=== PATIENT | female | born 1955 | race Caucasian/White ===

== ENCOUNTER 2020-02-12 02:32 | Emergency (ER) | payer MEDICARE, OTHER, SELFPAY ==
--- NOTE | 2020-02-12 02:35 | ED.ABDPAIN ---
HPI - Abdominal Pain General Chief Complaint: Abdominal Pain Stated Complaint: Has IBS, constipation inflamed instestine Time Seen by Provider: 02/12/20 02:35 Source: patient and family Mode of arrival: Ambulatory Limitations: no limitations History of Present Illness HPI narrative: 64F non-smoker with history of IBS presents with her and the chief complaint of severe lower abdominal pain over the course of the day. She complains of increasing lower abdominal and pelvic pain with the car ride up from [place]. She is visiting grand kids in [place] and came to see us as her pain worsened. She denies any runny nose, sore throat or cough, nor any other classic COVID-19 symptoms. She states she has a history of irritable bowel syndrome and sees gastroenterology in [place]. She has been having some increased difficulty for the past 3 weeks and this includes frequent constipation. She recently employed clear liquid diet which did not help her much. Her last visit to a hospital was in April of 2019 at [place], [place]. Her pain is worse with motion and the car ride, improves with rest. She denies any radiation. She denies any dysuria, but admits to urinary frequency MD complaint: abdominal pain Onset (ago): hour(s) Pain Consistency: constant Location: suprapubic Severity: moderate Quality: cramping Radiation: none Migration to: no migration Relieving factors: rest Exacerbating factors: movement Associated symptoms: nausea Related Data Allergies Allergy/AdvReac Type Severity Reaction Status Date / Time aspirin Allergy Verified 02/12/20 04:42 cyclobenzaprine Allergy Verified 02/12/20 04:40 levofloxacin [From Levaquin] Allergy Verified 02/12/20 04:43 naproxen Allergy Verified 02/12/20 04:42 NSAIDS (Non-Steroidal Allergy Verified 02/12/20 04:42 Anti-Inflamma oxycodone Allergy Verified 02/12/20 04:40 Penicillins Allergy Verified 02/12/20 04:40 Sulfa (Sulfonamide Allergy Verified 02/12/20 04:41 Antibiotics) Review of Systems Constitutional Constitutional: Denies chills, Denies fatigue, Denies fever(s), Denies frequent falls, Denies lethargy and Denies weakness Eyes Eyes: Denies change in vision, Denies eye discharge, Denies irritation and Denies loss of vision ENT Ears, Nose, Mouth, and Throat: Denies change in voice, Denies dizziness, Denies neck pain, Denies sore throat and Denies throat swelling Cardiovascular Cardiovascular: Denies chest pain, Denies irregular heart rhythm, Denies lightheadedness, Denies palpitations, Denies dyspnea, Denies dyspnea on exertion and Denies orthopnea Respiratory Respiratory: Denies cough, Denies dyspnea, Denies dyspnea on exertion and Denies wheezing Gastrointestinal Gastrointestinal: Reports abdominal pain, Denies change in bowel habits, Reports constipation, Denies diarrhea, Reports nausea and Denies vomiting Musculoskeletal Musculoskeletal: Denies neck pain and Denies numbness Integumentary/Breasts Skin/Breast: Denies pruritus, Denies erythema, Denies rash and Denies wounds Neurologic Neurologic: Denies behavioral changes, Denies confusion, Denies dizziness, Denies frequent falls, Denies loss of vision, Denies numbness and Denies weakness Psychiatric Psychiatric: Denies anxiety, Denies behavioral changes, Denies confusion, Denies depression, Denies homicidal ideation and Denies suicidal ideation Endocrine Endocrine: Denies fatigue, Denies flushing and Denies palpitations Hematologic/Lymphatic Hematologic/Lymphatic: Denies easy bruising Allergic/Immunologic Allergic/Immunologic: Denies urticaria, Denies throat swelling and Denies wheezing Patient History Social History Smoking Status: Never smoker Smoking Status: Never smoker alcohol intake frequency: 0-2 drinks per day Exam Narrative Exam Narrative: GENERAL: [64] year old patient appears stated age. Thin, obviously very uncomfortable HEAD: Atraumatic. Normocephalic. EYES: Pupils equal round and reactive. Extraocular motions intact. No scleral icterus. No injection or drainage. ENT: Nose without bleeding, purulent drainage. Throat without erythema, tonsillar hypertrophy or exudate. Airway patent. NECK: Trachea midline. Non tender CARDIOVASCULAR: Regular rate and rhythm without murmurs, gallops, or rubs. RESPIRATORY: Clear to auscultation. Breath sounds equal bilaterally. No wheezes, rales, or rhonchi. GASTROINTESTINAL: Abdomen soft, non-tender, nondistended. Decreased bowel sounds in all 4 quadrants EXTREMITIES: No edema or joint tenderness. BACK: Nontender without deformity or crepitance. No flank tenderness. NEURO: AOx3. SKIN: No rash or erythema of visible areas Initial Vital Signs Initial Vital Signs: Vital Signs Temperature 98.8 F 07/23/20 02:55 Pulse Rate 81 02/12/20 02:55 Respiratory Rate 17 02/12/20 02:55 Blood Pressure 144/78 H 02/12/20 02:55 Pulse Oximetry 98 02/12/20 02:55 Course Course Course Narrative: call to Dr. Rocha (patient's GI) who recommends half bottle miralax in bottle of gatorade and clear liquids with follow up and return precautions. Orders Ordered: Discontinued Medications Hydromorphone HCl (Dilaudid) 0.5 mg IV NOW ONE Stop: 02/12/20 03:03 Last Admin: 02/12/20 03:24 Dose: 0.5 mg Documented by: YUNI Sodium Chloride (Normal Saline 0.9%) 1,000 mls @ 1,000 mls/hr IV BOLUS ONE Stop: 02/12/20 04:01 Last Infusion: 02/12/20 04:38 Dose: 0 mls/hr Documented by: Admin: 02/12/20 03:23 Dose: 1,000 mls/hr Documented by: YUNI Ondansetron HCl (Zofran) 4 mg IV NOW ONE Stop: 02/12/20 03:03 Last Admin: 02/12/20 03:24 Dose: 4 mg Documented by: YUNI Vital Signs Vital signs: Vital Signs - 8 hr 02/12/20 02:55 02/12/20 04:18 02/12/20 04:19 Temperature 98.8 F Pulse Rate 81 73 71 Respiratory Rate 17 Blood Pressure 139/65 139/65 Blood Pressure [Left Arm] 144/78 H Pulse Oximetry 98 100 100 MDM - Abdominal Pain Lab Data Result diagrams: 02/12/20 03:20 02/12/20 03:20 Labs: Lab Results 02/12/20 02/12/20 Range/Units 03:20 03:20 WBC 5.8 (4.5-11.0) X10^3/uL RBC 4.28 (4.0-5.2) X10^6/uL Hgb 13.4 (12.0-16.0) g/dL Hct 39.8 (36-46) % MCV 93.1 (80-100) fL MCH 31.3 (26-34) PG MCHC 33.6 (30-36) % RDW 11.7 (11.6-14.8) % Plt Count 163 (150-400) X10^3/uL Neut % (Auto) 60.1 (50-75) % Lymph % (Auto) 29.3 (25-40) % Sampson % (Auto) 8.7 (3-14) % Eos % (Auto) 1.3 L (2-4) % Baso % (Auto) 0.6 (0-2) % Neut # (Auto) 3500 (9633-0286) /uL Lymph # (Auto) 1700 (4702-5308) /uL Sampson # (Auto) 500 (0-900) /uL Eos # (Auto) 100 (0-450) /uL Baso # (Auto) 0 (0-100) /uL Sodium 137 (137-145) mmol/L Potassium 3.6 (3.4-5.1) mmol/L Chloride 107 (98-107) mmol/L Carbon Dioxide 24 (22-32) mmol/L BUN 11 (7-17) mg/dL Creatinine 0.65 (0.52-1.04) mg/dL Estimated GFR > 60.0 (>60) mL/min BUN/Creatinine Ratio 16.9 (6-22) Glucose 78 L (80-110) mg/dL Calcium 9.5 (8.4-10.2) mg/dL Total Bilirubin 1.0 (0.2-1.3) mg/dL AST 36 (14-36) IU/L ALT 27 (<35) IU/L Alkaline Phosphatase 65 (38-126) U/L Total Protein 6.9 (6.3-8.2) g/dL Albumin 4.4 (3.5-5.0) g/dL Globulin 2.5 (1.7-4.1) g/dL Albumin/Globulin Ratio 1.8 (1.0-2.8) Lipase 135 (23-300) U/L Point of care testing: Urine Dip Bedside Urine Glucose Negative Bedside Urine Bilirubin - Negative Bedside Urine Ketone + 15 Urine Specific Lenora 1.010 Bedside Urine Occult Blood - Negative Bedside Urine pH 6.0 Bedside Urine Protein - Negative Bedside Urine Urobilinogen - Negative Bedside Urine Nitrite - Negative Bedside Urine Leukocytes - Negative Esterase Imaging Data CT scan - abdomen/pelvis: Radiologist's Impression: [place] [address] CT Scan Report Signed Patient: Neva Delarosa LMR#: [id number] : 3Acct:[id number] Age/Sex: 64 / FDate of Service: 02/12/20 Loc: ED Accession Number: [id number] Procedure: CT abdomen pelvis w con Ordering Provider: Arron Mccarthy D.O. PROCEDURE: CT ABDOMEN PELVIS W CON INDICATIONS: severe lower abdominal pain TECHNIQUE: After the administration of intravenous contrast, 5 mm thick sections acquired from the diaphragm to the symphysis. 5 mm coronal and sagittal reformats were acquired. For radiation dose reduction, the following was used: automated exposure control, adjustment of mA and/or kV according to patient size. COMPARISON: None. FINDINGS: Image quality: Excellent. ABDOMEN: Lung bases: Lung bases are clear. Heart size is normal. Solid organs: Liver is mildly prominent with normal enhancement. Gallbladder is unremarkable. Biliary system is non dilated. Pancreas enhances normally. Spleen is normal in size and enhancement. No adrenal nodules. Kidneys demonstrate normal size and enhancement, without hydronephrosis. Peritoneum and bowel: Bowel loops demonstrate no gross obstruction. There is mild scattered fluid-filled loops of small bowel. Limited, partially visualized. No free air. Minimal dependent pelvic fluid. Nodes and vessels: No retroperitoneal or mesenteric adenopathy by size criteria. Aorta and inferior vena cava are normal in size. Miscellaneous: No ventral hernias. PELVIS: Genitourinary: Bladder wall thickness is normal. Miscellaneous: No inguinal hernias or adenopathy. Bones: No suspicious bony lesions. No vertebral body compression fractures. IMPRESSION: 1. Nonspecific appearance of mild scattered fluid-filled loops of small bowel. This can be seen with enteritis. Dictated by: Rin Yip M.D. on 02/12/2020 at 9:44 Approved by: Rin Yip M.D. on 02/12/2020 at 9:49 Discharge Plan Departure Patient Disposition: Home Clinical Impression: Irritable bowel syndrome Qualifiers: Irritable bowel syndrome type: with constipation Qualified Code(s): K58.1 - Irritable bowel syndrome with constipation Discharge Date/Time: 02/12/20 06:29 Instructions: DI for Abdominal Pain-Adult Activity Restrictions/Additional Instructions: *You have been diagnosed with [ irritable bowel syndrome with constipation ] *What to do: *Take medications as directed: Dr. Rocha was called and he suggests mixing a half bottle of miralax with a bottle of gatorade to help clean you out. *Follow up with your primary care provider in 2-3 days, call for an appointment. Let them know you were seen in the Emergency Department and that we ask that you be seen in follow up *Return to ER if you should have any new, worsening or concerning symptoms
[2020-02-12 02:55] VITALS: BP 144/78; PULSE 81; RESP 17; TEMP 37.1; O2SAT 98
--- NOTE | 2020-02-12 03:03 | DI.RAD.S_ITS ---
PROCEDURE: XR ABDOMEN MIN 2V INDICATIONS: severe abdomen pain TECHNIQUE: 2 views of the abdomen were acquired. COMPARISON: None. FINDINGS: Surgical changes and devices: None. Bowel: No pneumoperitoneum. The bowel gas pattern is nonspecific. Soft tissues: No masses; visualized solid organ contours appear normal in size. No suspicious abdominal calcifications. Bones: No suspicious bony abnormalities. IMPRESSION: Nonspecific bowel gas pattern without definite evidence of obstruction. If there is continued clinical concern for pathology, CT scan of the abdomen/pelvis should be considered for further evaluation. Dictated by: So New MD, PhD on 02/12/2020 at 8:40 Approved by: So New MD, PhD on 02/12/2020 at 8:41
[2020-02-12] MEDS: SODIUM CHLORIDE 0.9% 1,000 ML 1000 ML IV (03:23)
[2020-02-12] MEDS: HYDROMORPHONE 0.5 MG INJ IV (03:24)
[2020-02-12] MEDS: ONDANSETRON 4 MG/2 ML INJ IV (03:24)
[2020-02-12 03:33] LABS: Add Manual Diff / Slide Review NO; Basophils Absolute Auto 0 /uL (0-100); Basophils Percent Auto 0.6 % (0-2); Eosinophils Absolute Auto 100 /uL (0-450); Eosinophils Percent Auto 1.3 % (2-4); Hematocrit 39.8 % (36-46); Hemoglobin 13.4 g/dL (12.0-16.0); Lymphocytes Absolute Auto 1700 /uL (1100-4500); Lymphocytes Percent Auto 29.3 % (25-40); Mean Corpuscular HGB Conc 33.6 % (30-36); Mean Corpuscular Hemoglobin 31.3 PG (26-34); Mean Corpuscular Volume 93.1 fL (80-100); Monocytes Absolute Auto 500 /uL (0-900); Monocytes Percent Auto 8.7 % (3-14); Neutrophils Absolute Auto 3500 /uL (1500-7000); Neutrophils Percent Auto 60.1 % (50-75); Platelet Count 163 X10^3/uL (150-400); Red Blood Cell Count 4.28 X10^6/uL (4.0-5.2); Red Cell Distribution Width 11.7 % (11.6-14.8); White Blood Cell Count 5.8 X10^3/uL (4.5-11.0)
[2020-02-12 03:43] LABS: Alanine Aminotransferase 27 IU/L (<35); Albumin 4.4 g/dL (3.5-5.0); Albumin Globulin Ratio 1.8 (1.0-2.8); Alkaline Phosphatase 65 U/L (38-126); Aspartate Aminotransferase 36 IU/L (14-36); BUN Creatinine Ratio 16.9 (6-22); Blood Urea Nitrogen 11 mg/dL (7-17); Calcium 9.5 mg/dL (8.4-10.2); Carbon Dioxide 24 mmol/L (22-32); Chloride 107 mmol/L (98-107); Estimated Glomerular Filt Rate > 60.0 mL/min (>60); Globulin 2.5 g/dL (1.7-4.1); Glucose 78 mg/dL (80-110); HEMOLYSIS 19 (0-50); Lipase 135 U/L (23-300); Potassium 3.6 mmol/L (3.4-5.1); Sodium 137 mmol/L (137-145); Total Protein 6.9 g/dL (6.3-8.2)
--- NOTE | 2020-02-12 03:55 | DI.CT.S_ITS ---
PROCEDURE: CT ABDOMEN PELVIS W CON INDICATIONS: severe lower abdominal pain TECHNIQUE: After the administration of intravenous contrast, 5 mm thick sections acquired from the diaphragm to the symphysis. 5 mm coronal and sagittal reformats were acquired. For radiation dose reduction, the following was used: automated exposure control, adjustment of mA and/or kV according to patient size. COMPARISON: None. FINDINGS: Image quality: Excellent. ABDOMEN: Lung bases: Lung bases are clear. Heart size is normal. Solid organs: Liver is mildly prominent with normal enhancement. Gallbladder is unremarkable. Biliary system is non dilated. Pancreas enhances normally. Spleen is normal in size and enhancement. No adrenal nodules. Kidneys demonstrate normal size and enhancement, without hydronephrosis. Peritoneum and bowel: Bowel loops demonstrate no gross obstruction. There is mild scattered fluid-filled loops of small bowel. Limited, partially visualized. No free air. Minimal dependent pelvic fluid. Nodes and vessels: No retroperitoneal or mesenteric adenopathy by size criteria. Aorta and inferior vena cava are normal in size. Miscellaneous: No ventral hernias. PELVIS: Genitourinary: Bladder wall thickness is normal. Miscellaneous: No inguinal hernias or adenopathy. Bones: No suspicious bony lesions. No vertebral body compression fractures. IMPRESSION: 1. Nonspecific appearance of mild scattered fluid-filled loops of small bowel. This can be seen with enteritis. Dictated by: Rin Yip M.D. on 02/12/2020 at 9:44 Approved by: Rin Yip M.D. on 02/12/2020 at 9:49
[2020-02-12 04:18] VITALS: BP 139/65; PULSE 73; O2SAT 100
[2020-02-12 04:19] VITALS: BP 139/65; PULSE 71; O2SAT 100
[2020-02-12 06:28] VITALS: BP 137/62; PULSE 72; RESP 18; O2SAT 98
== END 2020-02-12 06:29 | disposition home or self-care (01) ==
PROVIDERS: Emergency Provider Emergency Medicine
DX: K58.1 Irritable bowel syndrome with constipation (principal); R11.0 Nausea; R10.2 Pelvic and perineal pain
CPT/HCPCS: 36415; 74019; 74177; 80053; 81003; 83690; 85025; 96361; 96374; 96375; 99284; J1170; J2405; Q9967